=== PATIENT | female | born 1930 | race Caucasian/White ===

== ENCOUNTER 2017-03-13 21:33 | Observation (INO) | payer OTHER, MEDICAID ==
--- NOTE | 2017-03-13 22:09 | DR.CP ---
HPI - Time Seen Time seen: 22:10 - PCP Primary Care Physician: SUSHIL - HPI Comment HPI Comment: PRECORDIA CHEST PRESSURE RADIATING TO LEFT ARM WITH NUMBNESS THAT LASTED OVER ONE HOUR TONIGHT. PAIN ASSOCIATED WITH SOB. SIMILAR PAIN IN THE PAST LASTING FOR SHRTER PERIOD AND NEVER RADIATED TO ARM. PATIENT HAVE NO OTHER ASSOCIATED SYMTOMS. PAIN MORE INTENSE TONIGHT ALSO. - Complaint Chief Complaint Doctor Comments: CHEST PAIN. Chief Complaint:: CHEST PAIN THAT LASTED ABOUT A HOUR AND IT SCARED ME. IT ALWAYS HAPPENS BUT TONIGHT IT LASTED LONGER. USUALLY I CAN DRANK A COKE AND I CAN BELCH AND IT GOES AWAY , IT DIDN'T DO THAT TONGITH. I AM NOT HURTING NOW AT ALL. - Reviewed Nurses Notes Review: Yes - Source History Provided: Patient - Mode of Arrival Mode of Arrival: Wheelchair - Timing Onset of Chief Complaint: 03/13/17 Came on: Suddenly Pain: Resolved - Duration Duration: Since Onset Duration: Hours - Location Location of Chest Pain: Left, Chest Chest Pain Radiation Location: Left Arm (NUMBNESS HANDS), Left Shoulder - Context Onset: At rest Cardiac Risk Factors: Smoker (CURRENTLY TIMES 2 WEEKS NOT SMOKING.), Hyperlipidemia PE Risk Factors: None History of: Similar pain in the past, Aspirin in last 24 hours Prehospital Care: [facility] (81[facility]K TAKEN TODAY.) - Quality Quality: Pressure like - Severity Severity: Moderate - Modifying Factors Worsens: Nothing Impoves: Nothing - Associated Signs and Symptoms Associated Signs and Symptoms: Shortness of Breath PMH - PMH Past Medical History: Yes Past Medical History: COPD, Dyslipidemia Past Medical History Comment: HOME OXYGEN. BREAST CANCER Past Surgical History: Yes Surgical History: Hysterectomy, Mastectomy Past Surgical History Comment: LEFT MASTECTOMY. BLADDER TACT - Family History History of Family Medical Conditions: Yes Family Medical History: Coronary Artery Disease - Social History Type of Tobacco Use: Cigarettes Alcohol Use: None Do you use any recreational Drugs:: No Lives With: Family Lives Where: Home - infectious screening Have you traveled outside the country in the last 6 months?: No Isolation: Standard ROS - Review of Systems Constitutional: No Symptoms Reported. negative: Chills, Diaphoresis, Fever, Weakness, Fatigue Eyes: No Symptoms Reported. negative: Eye Pain, Discharge ENTM: No Symptoms Reported. negative: Ear Pain, Nose Discharge, Nose Congestion , Throat Pain Respiratoy: Short of Breath. negative: Productive Cough, Non-Productive Cough, Wheezing, Hemoptysis Cardiovascular: Chest Pain Gastrointestinal/Abdominal: No Symptoms Reported Genitourinary: No Symptoms Reported Neurological: No Symptoms Reported, Numbness (LT HAND) Musculoskeletal: Shoulder, Arm Integumentary: No Symptoms Reported Hematologic/Lymphatic: No Symptoms Reported Endocrine: No Symptoms Reported All Other Systems: Reviewed and Negative PE - Vitals Vitals: Temperature 98.0 F Pulse Rate 70 Respiratory Rate 16 Blood Pressure 153/65 O2 Sat by Pulse Oximetry 94 - General Limitations: No Limitations General Appearance: Alert - Head Head Exam: Normal Inspection - Eyes Eye exam: Normal Appearance - ENT ENT Exam: Normal External Ear Exam - Chest Chest Inspection: Symmetric Chest Wall Rise - Respiratory Respiratory Exam: Normal Lung Sounds Bilat Respiratory Exam: Bilateral Rhonchi, Lower Rhonchi - Cardiovascular Cardiovascular Exam: Regular Rate, Normal Rhythm Pulse: Normal, Radial, Femoral Edema: Normal - Abdominal Exam Abdominal Exam: Normal Bowel Sounds, Soft. negative: Tenderness - Extremities Extremities Exam: Normal Inspection, Edema (TRACE). negative: Tenderness, Calf Tenderness - Back Back Exam: Paraspinal Tenderness - Neurologic Neurological Exam: Alert, Oriented X3, CN II-XII Intact, Normal Gait, Reflexes Normal. negative: Motor Sensory Deficit - Psychiatric Psychiatric Exam: Anxious - Skin Skin Exam: Erythema MDM - Additional Information Additional Information Obtained From: Family - Differential Diagnosis Differential Diagnosis: Angina, Chest Wall Pain, Cholelithasis, CHF, Costochondritis, Esophageal Reflux/Spasm, Gastritis, Pericarditis, Pleuritis, Pancreatitis, Pneumonia, Pneumothorax Course - Treatment Treatment: SEE ORDERS. [facility] PO IN ED. - Consultation Consultation Comments: DISCUSS PATIENT WITH DR. VALDEZ. HE WILL ADMIT PATIEMT. - Education/Counseling Education/Counseling: Patient, Family, Education Educated On: Diagnosis, Needs for Follow Up ROR - Labs Reviewed Laboratory Results Reviewed?: Yes Result Diagrams: 03/14/17 05:18 03/14/17 05:18 Laboratory: WBC 5.7 X10^3/uL (3.6-10.0) 03/14/17 05:18 RBC 3.57 X10^6/uL (3.5-5.4) 03/14/17 05:18 Hgb 11.2 g/dL (12.0-16.0) L 03/14/17 05:18 Hct 32.3 % (36.0-47.0) L 03/14/17 05:18 MCV 90.5 fL (80.0-100.0) 03/14/17 05:18 MCH 31.5 pg (27.0-34.0) 03/14/17 05:18 MCHC 34.7 g/dL (33.0-35.0) 03/14/17 05:18 RDW 13.5 % (11.6-16.5) 03/14/17 05:18 Plt Count 174 X10^3/uL (150.0-450.0) 03/14/17 05:18 Plt Count Comment Adequate (ADEQUATE) 03/13/17 22:24 MPV 9.0 fL (7.4-11.0) 03/14/17 05:18 Neut % 55.1 % (42.0-75.0) 03/14/17 05:18 Lymph % 34.9 % (21.0-51.0) 03/14/17 05:18 [place] % 8.0 % (0.0-13.0) 03/14/17 05:18 Eos % 1.6 % (0.9-2.9) 03/14/17 05:18 Baso % 0.4 % (0.2-1.0) 03/14/17 05:18 Neut # 3.1 x10^3/uL (2.2-4.8) 03/14/17 05:18 Lymph # 2.0 X10^3/uL (1.3-2.9) 03/14/17 05:18 [place] # 0.5 x10^3/uL (0.3-0.8) 03/14/17 05:18 Eos # 0.1 x10^3/uL (0.0-0.2) 03/14/17 05:18 Baso # 0.0 X10^3/uL (0.0-0.1) 03/14/17 05:18 Absolute Nucleated RBC 0.0 /100WBC 03/14/17 05:18 Plt Morphology Comment Normal (NORMAL) 03/13/17 22:24 RBC Morphology Normal (NORMAL) 03/13/17 22:24 INR Target Range - 03/14/17 05:18 INR 1.01 (0.8-1.3) 03/14/17 05:18 PTT 27.9 SECONDS (22.9-36.5) 03/14/17 05:18 PTT Comment - 03/14/17 05:18 Sodium 144 mmol/L (136-145) 03/14/17 05:18 Corrected Sodium TNP 03/14/17 05:18 Potassium 3.9 mmol/L (3.5-5.1) 03/14/17 05:18 Chloride 109 mmol/L (98-107) H 03/14/17 05:18 Carbon Dioxide 28.2 mmol/L (21-32) 03/14/17 05:18 BUN 11 mg/dL (7-18) 03/14/17 05:18 Creatinine 0.65 mg/dL (0.55-1.02) 03/14/17 05:18 Est GFR (MDRD) Af Amer > 60 (>60) 03/14/17 05:18 Est GFR (MDRD) Non-Af > 60 (>60) 03/14/17 05:18 Glucose 101 mg/dL (65-99) H 03/14/17 05:18 Calcium 8.6 mg/dL (8.5-10.1) 03/14/17 05:18 Corrected Calcium 9.4 mg/dL (8.5-10.1) 03/14/17 05:18 Magnesium 1.9 mg/dL (1.7-2.9) 03/14/17 05:18 Total Bilirubin 0.30 mg/dL (0.2-1.0) 03/14/17 05:18 AST 13 Units/L (15-37) L 03/14/17 05:18 ALT 15 Units/L (12-78) 03/14/17 05:18 Alkaline Phosphatase 60 Units/L (46-116) 03/14/17 05:18 Creatine Kinase 158 Units/L (26-192) 03/13/17 22:24 CK-MB (CK-2) 2.1 ng/mL (0-4.0) 03/13/17 22:24 CK/CKMB % Calc 1.3 % (<4) 03/13/17 22:24 Troponin I < 0.02 ng/mL (0-1.5) 03/13/17 22:24 B-Natriuretic Peptide 36.3 pg/mL (0-79) 03/13/17 22:24 Total Protein 5.9 g/dL (6.4-8.2) L 03/14/17 05:18 Albumin 3.0 g/dL (3.4-5.0) L 03/14/17 05:18 Globulin 2.9 g/dL (2.5-4.5) 03/14/17 05:18 Albumin/Globulin Ratio 1.0 Ratio (1.1-2.1) L 03/14/17 05:18 Triglycerides 59 mg/dL (0-150) 03/14/17 05:18 Cholesterol 188 mg/dL (0-200) 03/14/17 05:18 LDL Cholesterol, Calc 120 mg/dL (0-100) H 03/14/17 05:18 HDL Cholesterol 56 mg/dL (40-60) 03/14/17 05:18 Cholesterol/HDL Ratio 3.4 (0.0-5.0) 03/14/17 05:18 - XRAY XRAY Interpreted by: Radiologist XRAY Findings: REPORT DISCUSS WITH PATIENT AND FAMILY. - EKG Rhythm: NSR - Diagnosis Discharge Problem: Chest pain - Discharge Plan Disposition: ADMITTED INPATIENT Condition: Stable - Follow ups/Referrals - Instructions
[2017-03-13 22:33] LABS: BASOPHILS # (AUTO) 0.1 X10^3/uL (0.0-0.1); EOSINOPHILS # (AUTO) 0.1 x10^3/uL (0.0-0.2); HEMATOCRIT 36.5 % (36.0-47.0); MONOCYTES # (AUTO) 0.6 x10^3/uL (0.3-0.8); RED BLOOD COUNT 4.04 X10^6/uL (3.5-5.4)
[2017-03-13 22:42] LABS: BASOPHILS % (AUTO) 0.7 % (0.2-1.0); EOSINOPHILS % (AUTO) 1.6 % (0.9-2.9); HEMOGLOBIN 12.6 g/dL (12.0-16.0); LYMPHOCYTES # (AUTO) 2.2 X10^3/uL (1.3-2.9); MEAN CORPUSCULAR HEMOGLOBIN 31.1 pg (27.0-34.0); MEAN CORPUSCULAR HGB CONC 34.3 g/dL (33.0-35.0); MEAN CORPUSCULAR VOLUME 90.5 fL (80.0-100.0); MEAN PLATELET VOLUME 8.9 fL (7.4-11.0); MONOCYTES % (AUTO) 7.8 % (0.0-13.0); NEUTROPHILS % (AUTO) 62.9 % (42.0-75.0); PLATELET COUNT 180 X10^3/uL (150.0-450.0); RED CELL DISTRIBUTION WIDTH 13.5 % (11.6-16.5)
[2017-03-13 22:45] LABS: PLATELET MORPHOLOGY COMMENT NORMAL (NORMAL)
--- NOTE | 2017-03-13 22:48 | RAD ---
EXAM: Chest X-ray INDICATION: Chest pain COMPARISION: No prior TECHNIQUE: Single view FINDINGS: Chronic lung parenchymal changes are present bilaterally. The lung volumes are increased, and there is flattening of the hemidiaphragms. No focal lung parenchymal abnormality identified. The cardiac silhouette is mildly enlarged. The mediastinum is normal. The regional skeleton is intact. No evid ence of a pleural effusion. IMPRESSION: Chronic lung parenchymal changes are seen bilaterally and the lung volumes are increased, consistent with COPD. No acute abnormality. Reported By:
[2017-03-13 22:50] LABS: B-TYPE NATRIURETIC PEPTIDE 36.3 pg/mL (0-79); BLOOD UREA NITROGEN 15 mg/dL (7-18); CALCIUM 9.2 mg/dL (8.5-10.1); CARBON DIOXIDE 26.8 mmol/L (21-32); CHLORIDE 109 mmol/L (98-107); CREATININE 0.75 mg/dL (0.55-1.02); GLUCOSE 110 mg/dL (65-99); SODIUM 144 mmol/L (136-145); TROPONIN I < 0.02 ng/mL (0-1.5); eGFR BLACK RACES > 60 (>60); eGFR NON BLACK RACES > 60 (>60)
[2017-03-13] MEDS ORDERED: ASPIRIN 81 MG CHEWTAB ONE (22:53)
[2017-03-13 22:54] LABS: ALANINE AMINOTRANSFERASE 16 Units/L (12-78); ALBUMIN 3.5 g/dL (3.4-5.0); ALKALINE PHOSPHATASE 71 Units/L (46-116); ASPARTATE AMINO TRANSFERASE 13 Units/L (15-37); CKMB % 1.3 % (<4); CREATINE KINASE 158 Units/L (26-192); CREATINE KINASE MB 2.1 ng/mL (0-4.0); TOTAL PROTEIN 6.7 g/dL (6.4-8.2)
[2017-03-13] MEDS ORDERED: ASPIRIN 81 MG CHEWTAB PO SCH (23:00)
[2017-03-13] MEDS ORDERED: NITROSTAT SL PRN (23:40)
[2017-03-14] MEDS: DUONEB 0.5 MG/3 MG NEB SCH ×6 (01:50→20:50)
[2017-03-14 04:12] VITALS: BMI 22.7
[2017-03-14 06:35] LABS: BASOPHILS % (AUTO) 0.4 % (0.2-1.0); EOSINOPHILS # (AUTO) 0.1 x10^3/uL (0.0-0.2); EOSINOPHILS % (AUTO) 1.6 % (0.9-2.9); HEMATOCRIT 32.3 % (36.0-47.0); HEMOGLOBIN 11.2 g/dL (12.0-16.0); LYMPHOCYTES % (AUTO) 34.9 % (21.0-51.0); MEAN CORPUSCULAR HEMOGLOBIN 31.5 pg (27.0-34.0); MEAN CORPUSCULAR HGB CONC 34.7 g/dL (33.0-35.0); MEAN CORPUSCULAR VOLUME 90.5 fL (80.0-100.0); MONOCYTES # (AUTO) 0.5 x10^3/uL (0.3-0.8); NEUTROPHILS # (AUTO) 3.1 x10^3/uL (2.2-4.8); NEUTROPHILS % (AUTO) 55.1 % (42.0-75.0); PLATELET COUNT 174 X10^3/uL (150.0-450.0); RED BLOOD COUNT 3.57 X10^6/uL (3.5-5.4); RED CELL DISTRIBUTION WIDTH 13.5 % (11.6-16.5); WHITE BLOOD COUNT 5.7 X10^3/uL (3.6-10.0)
[2017-03-14 06:45] LABS: ALANINE AMINOTRANSFERASE 15 Units/L (12-78); ALKALINE PHOSPHATASE 60 Units/L (46-116); ASPARTATE AMINO TRANSFERASE 13 Units/L (15-37); BLOOD UREA NITROGEN 11 mg/dL (7-18); CALCIUM 8.6 mg/dL (8.5-10.1); CARBON DIOXIDE 28.2 mmol/L (21-32); CHLORIDE 109 mmol/L (98-107); CHOL/HDL RATIO 3.4 (0.0-5.0); CHOLESTEROL 188 mg/dL (0-200); COR CA(FOR HYPOALB) 9.4 mg/dL (8.5-10.1); CREATININE 0.65 mg/dL (0.55-1.02); GLUCOSE 101 mg/dL (65-99); HDL CHOLESTEROL 56 mg/dL (40-60); MAGNESIUM 1.9 mg/dL (1.7-2.9); SODIUM 144 mmol/L (136-145); TOTAL PROTEIN 5.9 g/dL (6.4-8.2); TRIGLYCERIDES 59 mg/dL (0-150); eGFR BLACK RACES > 60 (>60); eGFR NON BLACK RACES > 60 (>60)
[2017-03-14 06:48] LABS: CKMB % 1.6 % (<4); CREATINE KINASE MB 1.7 ng/mL (0-4.0); TROPONIN I 0.03 ng/mL (0-1.5)
[2017-03-14] MEDS ORDERED: NS 100 ML IV 100 ML IV ONE (10:20)
[2017-03-14] MEDS: VITAMIN C PO SCH (11:16)
[2017-03-14] MEDS: ALBUMIN HUMAN 25%- 100ML 100 ML IV SCH (11:16)
[2017-03-14] MEDS: ASPIRIN EC 81 MG PO SCH (11:16)
[2017-03-14 12:21] LABS: CKMB % 1.6 % (<4); CREATINE KINASE 118 Units/L (26-192); CREATINE KINASE MB 1.9 ng/mL (0-4.0); TROPONIN I < 0.02 ng/mL (0-1.5)
--- NOTE | 2017-03-14 16:43 | CT ---
HISTORY: Chest pain, breast carcinoma Study: CT chest with contrast Comparison: None Technique: Multiple axial images of the chest were obtained from the thoracic inlet to the upper abd omen after the administration of IV contrast. AEC was utilized. Findings: There is a multinodular thyroid for which correlation with ultrasound is recommended. There is no p ericardial effusion observed. There is Coronary and aortic atherosclerosis with aortic ectasia but n o jacqueline aneurysm or dissection. The central pulmonary arterial system does not demonstrate central filling defects to suggest pulmonary emboli. Evaluation of the lung parenchyma demonstrates biapica l centrilobular emphysema. There is a 5 mm right upper lobe pulmonary nodule which is likely postin flammatory but for which follow up will be necessary. Also noted is nodular pleural based discoid e nhancing consolidation with a central radiating linear component favored to represent rounded atelec tasis but for which attention at follow up is recommended. [address], PET, or correlation with previous imaging is recommended. Pneumonia and malignancy are also considered but less likely. There is no pathologic hilar or mediastinal lymphadenopathy. There is no effusion or pneumothorax. No destructive osseous lesions are seen. There is an age-indeterminate T12 compression deformity fo r which correlation with acute or subacute back pain is recommended. Findings could be correlated wi th MRI or bone scan if there is concern for an acute or subacute compression fracture. Cholesterol s tones are noted within the gallbladder. There are bilateral renal parapelvic cysts. There are bilate ral adrenal nodules measuring approximately 1.7 cm with Hounsfield units suggestive of adenomas but without diagnostic features and for which follow up is recommended given the history of breast carci noma. Correlation with nonemergent temporal surveillance MRI versus PET imaging is recommended. Eliane elation with any previous exams would be helpful as well. The patient is status post left mastectomy . The esophagus is mildly dilated and fluid-filled which could indicate reflux. IMPRESSION: 1. Probable rounded atelectasis right lower lobe and probable postinflammatory right upper lobe pulm onary nodule without definite acute intrathoracic process otherwise noted. Short-term temporal surve illance CT versus PET imaging is recommended. Alternatively, correlation with previous exams would b e helpful especially given the patient's history of breast carcinoma status post mastectomy. 2. There are additional incidental age-indeterminate findings of a T12 compression fracture, multino dular thyroid, and bilateral adrenal nodules for which previous exams would be helpful. Otherwise, s hort-term follow up imaging is again recommended as above. 3. Cholelithiasis. 4. Fluid within the esophagus which could indicate reflux. Reported By:
[2017-03-14] MEDS ORDERED: ZOCOR TAB 20 MG PO SCH (21:00)
[2017-03-15] MEDS: DUONEB 0.5 MG/3 MG NEB SCH ×5 (00:23→16:00)
[2017-03-15 06:11] LABS: BASOPHILS % (AUTO) 0.3 % (0.2-1.0); EOSINOPHILS # (AUTO) 0.1 x10^3/uL (0.0-0.2); EOSINOPHILS % (AUTO) 1.6 % (0.9-2.9); HEMATOCRIT 30.6 % (36.0-47.0); HEMOGLOBIN 10.7 g/dL (12.0-16.0); LYMPHOCYTES # (AUTO) 1.5 X10^3/uL (1.3-2.9); LYMPHOCYTES % (AUTO) 24.1 % (21.0-51.0); MEAN CORPUSCULAR HEMOGLOBIN 31.5 pg (27.0-34.0); MEAN CORPUSCULAR HGB CONC 34.8 g/dL (33.0-35.0); MEAN CORPUSCULAR VOLUME 90.5 fL (80.0-100.0); MEAN PLATELET VOLUME 8.9 fL (7.4-11.0); MONOCYTES # (AUTO) 0.5 x10^3/uL (0.3-0.8); MONOCYTES % (AUTO) 8.9 % (0.0-13.0); NEUTROPHILS # (AUTO) 3.9 x10^3/uL (2.2-4.8); NEUTROPHILS % (AUTO) 65.1 % (42.0-75.0); PLATELET COUNT 177 X10^3/uL (150.0-450.0); RED BLOOD COUNT 3.39 X10^6/uL (3.5-5.4); RED CELL DISTRIBUTION WIDTH 13.5 % (11.6-16.5); WHITE BLOOD COUNT 6.1 X10^3/uL (3.6-10.0)
[2017-03-15 06:30] LABS: ALANINE AMINOTRANSFERASE 16 Units/L (12-78); ALBUMIN 2.9 g/dL (3.4-5.0); ALKALINE PHOSPHATASE 54 Units/L (46-116); ASPARTATE AMINO TRANSFERASE 10 Units/L (15-37); BLOOD UREA NITROGEN 9 mg/dL (7-18); CALCIUM 8.2 mg/dL (8.5-10.1); CARBON DIOXIDE 29.1 mmol/L (21-32); CHLORIDE 108 mmol/L (98-107); COR CA(FOR HYPOALB) 9.1 mg/dL (8.5-10.1); GLUCOSE 106 mg/dL (65-99); SODIUM 144 mmol/L (136-145); TOTAL PROTEIN 5.7 g/dL (6.4-8.2); eGFR BLACK RACES > 60 (>60); eGFR NON BLACK RACES > 60 (>60)
[2017-03-15] MEDS: VITAMIN C PO SCH (09:23)
[2017-03-15] MEDS: ASPIRIN EC 81 MG PO SCH (09:24)
[2017-03-15] MEDS: ALBUMIN HUMAN 25%- 100ML 100 ML IV SCH ×2 (09:25→10:01)
--- NOTE | 2017-03-15 15:46 | DR.H&P ---
H&P - History & Physical for Day of: H&P Date: 03/13/17 - Chief Complaint Chief Complaint: chest pain - Allergies Allergies/Adverse Reactions: Allergies Allergy/AdvReac Type Severity Reaction Status Date / Time No Known Drug Allergies Allergy Verified 03/13/17 21:41 - History of Present Illness History of Present Illness: Patient is a 87yo who presented to the emergency room with complaints of chest chest pain that lasted about an hour that radiated to her left arm with numbness, patient also complained of shortness of breath. Patient has a history of COPD, Dyslipidemia, wears oxygen at home, and breast cancer. Vital signs on arrival were 98.0, 70, 16, 94%, 153/65. Labs on arrival were within normal limits with the exception of Neut# 5.0, chloride 109 , glucose 110, AST 13. Cardiac enzymes within normal limits. Chest xray shows chronic lung parenchymal changes are seen bilaterally and the lung volumes are increased, consistent with COPD. No acute abnormality. EKG shows normal sinus rhythm rate of 65 with left axis deviation, borderline T abnormalities. Patient admitted with diagnosis of chest pain and states on aspirin, nitroglycerin 0.4mg SL Q5min, Zocor 20mg at bedtime and duonebs. - Past Medical History Past Medical History: COPD, Dyslipidemia - Past Surgical History Surgical History: Hysterectomy, Mastectomy - Family History Family Medical History: Coronary Artery Disease - Social History Does patient currently use any type of tobacco product: Yes Have you used tobacco products in the last 12 months: Yes Type of Tobacco Use: Cigarettes Does any household member use tobacco: No Alcohol Use: None Drug Use: None - Medications Home Medications: Albuterol Sulfate [VENTOLIN or PROAIR HFA Inhaler *] 2 puff INH Q4HR PRN [History Confirmed 03/13/17] Ascorbic Acid [Vitamin C] 500 mg PO DAILY 03/13/17 [History Confirmed 03/13/17] Aspirin EC [ASPIRIN EC 81 MG *] 81 mg PO DAILY 03/13/17 [History Confirmed 03/13] Ipratropium/Albuterol Sulfate [Combivent Respimat Inhaler] 1 dose INH PRN PRN [History Confirmed 03/13/17] Simvastatin [Simvastatin] 1 tab PO HS 03/13/17 [History Confirmed 03/13/17] - Review of Systems Constitutional: No Symptoms Reported Eyes: No Symptoms Reported ENT: No Symptoms Reported Respiratory: No Symptoms Reported Cardiovascular: Chest Pain Gastrointestinal: No Symptoms Reported Genitourinary: No Symptoms Reported Musculoskeletal: No Symptoms Reported Skin: No Symptoms Reported Neurological: No Symptoms Reported - Physical Exam Vital Signs: 98.0, 70, 16, 94%, 153/65 Oriented: Normal Eyes: Normal Ear: Normal Nose: Normal Throat: Normal Respiratory: Clear Throughout Cardiovascular: Normal : Normal Auscultation: Bowel Sounds: Normal Palpation: Normal Tenderness: Normal Skin: Normal Musculoskeletal: Normal Psychiatric: Normal Mood Description: Calm, Appropriate Affect: Normal Speech Pattern: Clear, Appropriate - Assessment/Plan (1) Chest pain Qualifiers: Chest pain type: C Ischemic chest pain type: I Status: Acute Plan: nitroglycerin 0.4mg SL Q5min, continuous cardiac monitoring and serial cardiac enzymes and EKG.
--- NOTE | 2017-03-15 15:49 | PCM.PROG ---
Progress Note - Progress Note for Day of Date: 03/14/17 - Subjective Subjective: Patient is a 87yo who was admitted with chest pain. Patient is awake this morning and states she is feeling better. We are going to order a chest CT and ECHO to rule out any other respiratory or cardiac anomalies. Vital signs this am 97.9, 75, 20, 166/70. Labs this am were within normal limits with the exception of Hgb 11.2, Hct 32.3, Chloride 109, Glucose 101, AST 13, Total Protein 5.9, Albumin 3.0, Albumin/globulin ratio 1.0, LDL cholesterol 120. Cardiac enzymes and EKG within normal limits. Patient noted to have some hypoalbuminemia and we are going to start her on albumin IV daily. - Past Medical Family Social History Past Med/Fam/Surg Hx: No changes since H&P Allergies: Allergies No Known Drug Allergies Allergy (Verified 03/13/17 21:41) - Review of Systems ROS: No change since H&P - Vital Signs and I&O's Vital Signs: 97.9, 75, 20, 166/70. Intake and Output: Intake & Output 03/13/17 03/14/17 03/15/17 03/16/17 11:59 11:59 11:59 11:59 Intake Total 0 1100 650 Balance 0 1100 650 - Physical Exam Oriented: Normal Eyes: Normal Ear: Normal Nose: Normal Throat: Normal Respiratory: Normal Cardiovascular: Normal : Normal Auscultation: Bowel Sounds: Normal Palpation: Normal Tenderness: Normal Skin: Normal Musculoskeletal: Normal Psychiatric: Normal Mood Description: Calm, Appropriate Affect: Normal Speech Pattern: Clear, Appropriate - Laboratory and Diagnostics Result Diagrams: 03/15/17 04:35 03/15/17 04:35 Labs: Labs this am were within normal limits with the exception of Hgb 11.2, Hct 32.3 , Chloride 109, Glucose 101, AST 13, Total Protein 5.9, Albumin 3.0, Albumin/ globulin ratio 1.0, LDL cholesterol 120. Cardiac enzymes and EKG within normal limits Radiology Reviewed: Yes EKG Reviewed: Yes - Plan (1) Chest pain Status: Acute Qualifiers: Chest pain type: C Ischemic chest pain type: I Plan: nitroglycerin 0.4mg SL Q5min, continuous cardiac monitoring and serial cardiac enzymes and EKG.
[2017-03-15 17:29] VITALS: BP 116/58
--- NOTE | 2017-03-16 16:50 | DR.CARTERD ---
- Discharge Summary for: Discharge Summary for Date of:: 03/15/17 - Admission Date Date of Admission: 03/13/17 - Admission Diagnoses Admission Diagnosis: Chest pain. COPD. Hyperlipidemia - Discharge Date Discharge Date: 03/15/17 - Discharge Diagnoses Discharge Diagnosis: Chest pain COPD Hyperlipidemia - Hospital Course Hospital Course: Patient is a 87yo who presented to the emergency room with complaints of chest pain that lasted about an hour that radiated to her left arm with numbness, patient also complained of shortness of breath. Patient has a history of COPD, Dyslipidemia, wears oxygen at home, and breast cancer. Vital signs on arrival were 98.0, 70, 16, 94%, 153/65. Labs on arrival were within normal limits with the exception of Neut# 5.0, chloride 109, glucose 110, AST 13. Cardiac enzymes within normal limits. Chest xray shows chronic lung parenchymal changes are seen bilaterally and the lung volumes are increased, consistent with COPD. No acute abnormality. EKG shows normal sinus rhythm rate of 65 with left axis deviation, borderline T abnormalities. Patient admitted with diagnosis of chest pain and states on aspirin, nitroglycerin 0.4mg SL Q5min, Zocor 20mg at bedtime and duonebs. Vital signs this am 97.9, 64, 20, 95%, 99/46. Patient states she is still feeling good and is ready to go home. We will discharge her home once ECHO is performed. Labs this am within normal limits with the exception of RBC 3.39, Hgb 10.7, Hct 30.6, Potassium 3.4, Chloride 108, Glucose 106, Calcium 8.2 , AST 10, Total protein 5.7, Albumin 2.9, Albumin/globulin Ratio 1.0. We are going to discharge her home in stable in stable condition to resume her home medications and follow up with her primary care provider Labs: within normal limits with the exception of RBC 3.39, Hgb 10.7, Hct 30.6, Potassium 3.4, Chloride 108, Glucose 106, Calcium 8.2, AST 10, Total protein 5.7 , Albumin 2.9, Albumin/globulin Ratio 1.0. - Discharge Medications Discharge Medications: Albuterol Sulfate [VENTOLIN or PROAIR HFA Inhaler *] 2 puff INH Q4HR PRN [History] Ascorbic Acid [VITAMIN C tab 500 mg *] 500 mg PO DAILY 03/13/17 [History] Aspirin EC [ASPIRIN EC 81 MG *] 81 mg PO DAILY 03/13/17 [History] Ipratropium/Albuterol Sulfate [Combivent Respimat Inhaler] 1 dose INH PRN PRN [History] Simvastatin 1 tab PO HS 03/13/17 [History] - Discharge Disposition Discharge Disposition: Home
== END 2017-03-15 17:35 | disposition home or self-care (01) ==
LOC: ER 21:33 → MED/SURG 23:34
PROVIDERS: ADMIT Internal Medicine; ATTEND Internal Medicine
DX: R07.89 Other chest pain (principal); R20.0 Anesthesia of skin; R06.02 Shortness of breath; J44.9 Chronic obstructive pulmonary disease, unspecified; E78.2 Mixed hyperlipidemia; Z99.81 Dependence on supplemental oxygen; M79.602 Pain in left arm; Z79.01 Long term (current) use of anticoagulants
CPT/HCPCS: 36415; 71010; 71260; 80053; 80061; 82550; 82553; 83735; 83880; 84484; 85025; 85610; 85730; 93005; 93010; 93306; 94640; 94760; 99284; A4222; P9047; G0378; J7620